=== PATIENT | female | born 1995 | race Caucasian/White ===

== ENCOUNTER → 2017-02-17 | Emergency (ER) | payer OTHER ==
[~2017-02-17] VITALS: Wt 70.5 kg
[~2017-02-17] MED LIST: CEPH-443 PO; CIPR500T4 PO; CYCL-319 PO; HYDR-906 PO; HYDROCODONE/APAP (5/325) TAB PO ONE; IBUP-1542 PO; IBUPROFEN 600 MG TAB PO ONE; NAPR-260 PO; ONDANSETRON (ODT) 4 MG TAB ODT STA; PHEN-538 PO
[2017-02-17 15:26] VITALS: Wt 70.5 kg
--- NOTE | 2017-02-17 17:47 | RADRPT ---
PROCEDURE: Chest x-ray CLINICAL INDICATION: Chest pain TECHNIQUE: Chest single view COMPARISON: 01/12/2015 FINDINGS: The heart is normal in size. The pulmonary vessels are normal in caliber. The lungs are clear. Th e costophrenic angles are sharp. The visualized bony thorax is unremarkable. IMPRESSION: No acute cardiopulmonary disease. RPTAT: HH .Ventura Staton MD, Date Time Electronically viewed and signed by .Ventura Staton MD, on 02/17/2017 17:47 .W/
--- NOTE | 2017-02-17 18:27 | RADRPT ---
PROCEDURE: Ultrasound breast limited CLINICAL INDICATION: Left breast pain and swelling since this morning. TECHNIQUE: An ultrasound of a left breast was performed utilizing colindres scale and Doppler imaging. COMPARISON: None. FINDINGS: Normal breast parenchyma is visualized. There are slightly dilated ducts in the retroareolar region . No mass, cyst, or fluid collection is identified. There is no abnormal vascularity in the left b reast. IMPRESSION: 1. Slightly dilated ducts in the retroareolar region. 2. Otherwise normal sonographic appearance of the left breast. BI-RADS 2: Benign RPTAT: HTAR .Danny Priest MD, MD Date Time Electronically viewed and signed by .Danny Priest MD, MD on 02/17/2017 18:27 .R/
--- NOTE | 2017-02-17 18:46 | ERD ---
ER Documentation Chief Complaint Date/Time DATE: 02/17/17 TIME: 18:41 Chief Complaint LEFT BREAST PAIN STARTED TODAY HPI This is a 22-year-old female presents to the ER with left breast pain that started earlier this morning. Left breast pain is constant and severe radiates to her left shoulder. Patient denies any fevers or chills. She denies any nipple discharge. She denies breast-feeding. Patient does have bilateral nipple piercings. Patient has not tried anything for the pain. Patient denies any trauma to the area she denies any shortness of breath. She does admits to one episode of nonbilious nonbloody vomiting earlier today. ROS 12 point review of systems was done, all negative except per HPI.. Medications Home Meds Active Scripts Cephalexin* (Keflex*) 500 Mg Capsule, 500 MG PO BID for 7 Days, CAP Prov:CARLTON CORTEZ 02/17/17 Hydrocodone/Acetaminophen ([place] 5-325 Tablet) 1 Each Tablet, 1 TAB PO Q6H Y for PAIN, #20 TAB Prov:CARLTON CORTEZ 02/17/17 Ibuprofen* (Motrin*) 600 Mg Tab, 600 MG PO Q6, #30 TAB Prov:CARLTON CORTEZ 02/17/17 Cephalexin* (Keflex*) 500 Mg Capsule, 500 MG PO QID for 5 Days, CAP Prov:SHADIA COOK NP 09/22/16 Ibuprofen* (Motrin*) 600 Mg Tab, 600 MG PO Q6H Y for PAIN AND OR ELEVATED TEMP, #30 TAB Prov:SHADIA COOK NP 09/22/16 Phenazopyridine Hcl* (Pyridium*) 200 Mg Tab, 200 MG PO TID Y for DYSURIA, #6 TAB Prov:SHADIA COOK NP 08/06/15 Ciprofloxacin Hcl* (Ciprofloxacin Hcl*) 500 Mg Tablet, 500 MG PO BID for 7 Days , TAB Prov:SHADIA COOK NP 08/06/15 Naproxen* (Naprosyn*) 500 Mg Tablet, 500 MG PO BID Y for PAIN AND/OR INFLAMMATION, #30 TAB Prov:KAILA PEREZ PA-C 05/08/15 Cyclobenzaprine Hcl* (Cyclobenzaprine Hcl*) 10 Mg Tablet, 10 MG PO TID, #15 TAB Prov:KAILA PEREZ PA-C 05/08/15 Reported Medications [None] No Conflict Check 03/10/14 Allergies Allergies: Coded Allergies: No Known Allergy (Unverified , 09/22/16) PMhx/Soc History of Surgery: Yes (R Inguinal Hernia Repair) Anesthesia Reaction: No Hx Neurological Disorder: No Hx Respiratory Disorders: No Hx Cardiac Disorders: Yes (Asthma) Hx Psychiatric Problems: No Hx Miscellaneous Medical Probl: No Hx Alcohol Use: No Hx Substance Use: No Hx Tobacco Use: No Physical Exam Vitals Vital Signs Date Time Temp Pulse Resp B/P Pulse Ox O2 Delivery O2 Flow Rate FiO2 02/17/17 15:26 98.0 125 18 136/84 99 Physical Exam GENERAL: The patient is well developed and appropriate for usual state of health , in no apparent distress. HEENT: Atraumatic. CHEST: Clear to auscultation bilaterally. There are no rales, wheezes or rhonchi. HEART: Regular rate and rhythm. No murmurs, clicks, rubs or gallops. Breast: Left breast patient has a piercing to the left nipple, there is some yellow dried discharge to the left nipple. No surrounding erythema extremely tender to palpation along left breast. No skin changes no nipple discharge. EXTREMITIES: Left shoulder: Patient has full range of motion of the left shoulder negative drop arm test. No deformities. NEURO: Alert and oriented. SKIN: There is no apparent rash or petechia. The skin is warm and dry. Results 24 hrs Current Medications Medications (Trade) Dose Ordered Sig/Adelso Route PRN Reason Start Time Stop Time Status Last Admin Dose Admin Acetaminophen/ Hydrocodone Bitart ([place] (5/325)) 1 tab ONCE ONCE PO 02/17/17 16:30 02/17/17 16:31 DC 02/17/17 16:09 Ibuprofen (Motrin) 600 mg ONCE ONCE PO 02/17/17 16:30 02/17/17 16:31 DC 02/17/17 16:09 Ondansetron HCl (Zofran Odt) 4 mg ONCE STAT ODT 02/17/17 16:01 02/17/17 16:04 DC 02/17/17 16:09 Procedures/MDM This is a 22-year-old female presents to the ER with left breast pain. EKG was done and read by Dr. Parker[address] elevation no t wave inversion. At this time there is some yellow crusting to the left nipple piercing. This may be a small infection. I did not feel any abscesses and there is no erythema to the breasts. Patient does not have a history of breast-feeding I doubt mastitis. There is no evidence of masses on ultrasound. Patient will be treated for possible infection. I discussed his case with Dr. Mendez and he agrees with my medical decision-making. Patient will be sent home with [facility] and [place]. She is to follow-up with her primary care doctor within 1-2 days or return to ER sooner if symptoms worsen. Plan was discussed with the patient she understands and agrees with plan. Departure Diagnosis: Primary Impression: Breast pain Condition: Stable Patient Instructions: Breast Self-Exam (BSE) Referrals: MARYSE ESCAMILLA (PCP) Additional Instructions: Call your primary care doctor TOMORROW for an appointment during the next 1-2 days.See the doctor sooner or return here if your condition worsens before your appointment time. CARLTON CORTEZ Feb 17, 2017 18:46
[2017-02-17 18:53] VITALS: BP 121/56; PULSE 114; RESP 18; TEMP 99.2
== END | disposition home or self-care (01) ==
LOC: FTE 15:23
DX: N64.4 Mastodynia (principal); J45.909 Unspecified asthma, uncomplicated; R11.10 Vomiting, unspecified
CPT/HCPCS: 71010; 76642; Z7502; Z7610; 93005